=== PATIENT | female | born 1980 | race Caucasian/White ===

== ENCOUNTER 2017-07-01 07:47 | Outpatient (CLI) | payer OTHER ==
[2017-07-01 09:10] LABS: BASOPHILS # (AUTO) 0.2 K/uL (0.00-0.22); BASOPHILS % (AUTO) 2.4 % (0.0-2.0); EOSINOPHILS # (AUTO) 0.3 K/uL (0-0.4); EOSINOPHILS % (AUTO) 3.5 % (0.0-4.0); HEMATOCRIT 44.2 % (36-48); HEMOGLOBIN 14.9 g/dL (12.0-16.0); LYMPHOCYTES # (AUTO) 2.4 K/uL (2.5-16.5); LYMPHOCYTES % (AUTO) 30.4 % (20.5-51.1); MEAN CORPUSCULAR HEMOGLOBIN 31 pg (27-31); MEAN CORPUSCULAR HGB CONC 34 g/dL (33-37); MEAN CORPUSCULAR VOLUME 91 fL (80-94); MONOCYTES # (AUTO) 0.4 K/uL (0.8-1.0); MONOCYTES % (AUTO) 4.5 % (1.7-9.3); NEUTROPHILS # (AUTO) 4.6 K/uL (1.8-7.7); NEUTROPHILS % (AUTO) 59.2 % (42.2-75.2); PLATELET COUNT (AUTO) 274 K/uL (140-450); RED BLOOD CELL COUNT(AUTO) 4.83 MIL/uL (4.20-5.40); RED CELL DISTRIBUTION WIDTH 11.7 % (11.6-13.7); WHITE BLOOD COUNT (AUTO) 7.9 K/uL (4.8-10.8)
[2017-07-01 09:35] LABS: ANION GAP 12.5 (8-16); CARBON DIOXIDE 28.2 mmol/L (21-32); CHOL/HDL RATIO 3.4 (1-4.5); CREATININE 0.9 mg/dL (0.6-1.3); POTASSIUM 3.7 mmol/L (3.5-5.1); THYROID STIMULATING HORMONE 1.23 uIU/mL (0.34-3.74)
[2017-07-01 10:30] LABS: APPEARANCE,URINE HAZY (CLEAR); BILIRUBIN,URINE NEGATIVE (NEGATIVE); BLOOD, URINE TRACE-I (NEGATIVE); COLOR,URINE YELLOW (YELLOW); LEUKOCYTE ESTERASE ,URINE NEGATIVE (NEGATIVE); NITRITE, URINE NEGATIVE (NEGATIVE); UGLUCOSE NEGATIVE (NEGATIVE)
[2017-07-01 11:17] LABS: RBC,URINE 0-5 (RARE) /HPF (0-5); WBC,URINE 0-5 (RARE) /HPF (0-5)
== END 2017-07-01 20:35 | disposition home or self-care (01) ==
LOC: MLB 07:47
PROVIDERS: ATTEND General Practice
DX: I10 Essential (primary) hypertension (principal)
CPT/HCPCS: 36415; 80053; 81001; 84439; 84443; 85025

== ENCOUNTER 2017-08-04 13:42 | Outpatient (CLI) | payer OTHER ==
[2017-08-04 14:38] LABS: ANION GAP 13.7 (8-16); CARBON DIOXIDE 25.9 mmol/L (21-32); CREATININE 0.9 mg/dL (0.6-1.3); POTASSIUM 3.6 mmol/L (3.5-5.1)
== END 2017-08-04 19:31 | disposition home or self-care (01) ==
LOC: MLB 13:42
PROVIDERS: ATTEND Student in an Organized Health Care Education/Training Program
DX: R74.0 Nonspecific elevation of levels of transaminase and lactic acid dehydrogenase [LDH] (principal)
CPT/HCPCS: 36415; 80053

== ENCOUNTER 2020-07-29 08:26 | Outpatient (CLI) | payer OTHER ==
[~2020-07-29 08:26] MED LIST: ESCI10TA PO; LISI-420 PO; METF500T PO
[2020-07-29 08:55] LABS: RED BLOOD CELL COUNT(AUTO) 4.41 MIL/uL (4.20-5.40)
[2020-07-29 08:56] LABS: EOSINOPHILS % (AUTO) 3.3 % (0.0-4.0); HEMATOCRIT 41.4 % (36-48); HEMOGLOBIN 14.3 g/dL (12.0-16.0); LYMPHOCYTES % (AUTO) 35.4 % (20.5-51.1); MEAN CORPUSCULAR HEMOGLOBIN 32 pg (27-31); MEAN CORPUSCULAR HGB CONC 34 g/dL (33-37); MEAN CORPUSCULAR VOLUME 93.9 fL (80-94); MONOCYTES % (AUTO) 4.2 % (1.7-9.3); NEUTROPHILS % (AUTO) 56.1 % (42.2-75.2); PLATELET COUNT (AUTO) 270 K/uL (140-450); RED CELL DISTRIBUTION WIDTH 12.7 % (11.6-13.7)
[2020-07-29 08:57] LABS: BASOPHILS # (AUTO) 0.1 K/uL (0.00-0.22); EOSINOPHILS # (AUTO) 0.3 K/uL (0-0.4); LYMPHOCYTES # (AUTO) 3.2 K/uL (2.5-16.5); MONOCYTES # (AUTO) 0.4 K/uL (0.8-1.0)
[2020-07-29 11:12] LABS: ANION GAP 14.8 (8-16); CARBON DIOXIDE 26.7 mmol/L (21-32); POTASSIUM 3.5 mmol/L (3.5-5.1); TOTAL BILIRUBIN 0.8 mg/dL (0.0-1.0)
[2020-07-29 11:13] LABS: THYROID STIMULATING HORMONE 2.09 uIU/mL (0.34-3.74)
[2020-07-29 12:01] LABS: CHOL/HDL RATIO 3.6 (1-4.5)
[2020-07-30 07:11] LABS: ESTRADIOL SERUM 75.2 pg/mL (.); FOLLICLE STIMULATING HORMONE 5.5 mIU/mL (.); LUTEINIZING HORMONE 4.9 mIU/mL (.)
== END 2020-07-29 21:49 | disposition home or self-care (01) ==
LOC: MLB 08:26
DX: Z01.419 Encounter for gynecological examination (general) (routine) without abnormal findings (principal); N95.1 Menopausal and female climacteric states; Z20.828 Contact with and (suspected) exposure to other viral communicable diseases
CPT/HCPCS: 36415; 80053; 82670; 83001; 83002; 83036; 84144; 84443; 85025

== ENCOUNTER 2022-05-22 08:19 | Outpatient (CLI) | payer OTHER ==
[~2022-05-22 08:19] MED LIST changes: -LISI-420 PO; +LISI20TA30 PO; +METF-346 PO; -METF500T PO
[2022-05-22 08:49] LABS: BASOPHILS # (AUTO) 0.1 K/uL (0.00-0.22); BASOPHILS % (AUTO) 1.1 % (0.0-2.0); EOSINOPHILS # (AUTO) 0.3 K/uL (0-0.4); HEMATOCRIT 41.7 % (36-48); HEMOGLOBIN 14.7 g/dL (12.0-16.0); LYMPHOCYTES # (AUTO) 2.6 K/uL (2.5-16.5); LYMPHOCYTES % (AUTO) 30.1 % (20.5-51.1); MEAN CORPUSCULAR HEMOGLOBIN 32 pg (27-31); MEAN CORPUSCULAR HGB CONC 35 g/dL (33-37); MEAN CORPUSCULAR VOLUME 90.2 fL (80-94); MONOCYTES # (AUTO) 0.3 K/uL (0.8-1.0); MONOCYTES % (AUTO) 3.7 % (1.7-9.3); NEUTROPHILS # (AUTO) 5.3 K/uL (1.8-7.7); NEUTROPHILS % (AUTO) 62.1 % (42.2-75.2); PLATELET COUNT (AUTO) 258 K/uL (140-450); RED BLOOD CELL COUNT(AUTO) 4.63 MIL/uL (4.20-5.40); WHITE BLOOD COUNT (AUTO) 8.6 K/uL (4.8-10.8)
[2022-05-22 09:14] LABS: ANION GAP 12.5 (8-16); CARBON DIOXIDE 26.8 mmol/L (21-32); CREATININE 0.8 mg/dL (0.6-1.3); POTASSIUM 3.3 mmol/L (3.5-5.1)
[2022-05-22 09:25] LABS: ALBUMIN 3.6 g/dL (3.4-5.0); CHOL/HDL RATIO 3.6 (1-4.5)
[2022-05-22 10:47] LABS: APPEARANCE,URINE CLEAR (CLEAR); BILIRUBIN,URINE NEGATIVE (NEGATIVE); BLOOD, URINE NEGATIVE (NEGATIVE); COLOR,URINE YELLOW (YELLOW); LEUKOCYTE ESTERASE ,URINE NEGATIVE (NEGATIVE); NITRITE, URINE NEGATIVE (NEGATIVE); PH,URINE 6.5 (5.0-9.0); UGLUCOSE NEGATIVE (NEGATIVE)
[2022-05-23 09:06] LABS: T4 (THYROXINE) 10.3 ug/dL (4.5-12.0)
[2022-05-24 09:06] LABS: MICROALBUMIN, UR RANDOM 5.2 ug/mL (Not Estab.)
[2022-05-25 12:07] LABS: ANTI-NUCLEAR ANTIBODY,DIRECT Negative (Negative)
== END 2022-05-22 20:18 | disposition home or self-care (01) ==
LOC: MLB 08:19
DX: I10 Essential (primary) hypertension (principal); E66.09 Other obesity due to excess calories; E11.65 Type 2 diabetes mellitus with hyperglycemia; R53.83 Other fatigue; Z00.00 Encounter for general adult medical examination without abnormal findings; E28.2 Polycystic ovarian syndrome; F32.5 Major depressive disorder, single episode, in full remission
CPT/HCPCS: 36415; 80048; 81003; 82040; 82043; 82570; 83036; 84436; 84443; 84479; 85025; 85651; 86038; 86140

== ENCOUNTER 2022-05-25 23:40 | Inpatient (IN) | payer OTHER ==
[~2022-05-25] VITALS: Ht 162.6 cm; Wt 98.4 kg
[2022-05-25 23:46] VITALS: BP 186/108
--- NOTE | 2022-05-25 23:51 | NUR ---
PT TO LOBBY WAITING FOR BED.
--- NOTE | 2022-05-25 23:59 | NUR ---
PT RETURN FROM RADIOLOGY TO ER LOBBY
[2022-05-26 00:16] LABS: BASOPHILS # (AUTO) 0.1 K/uL (0.00-0.22); BASOPHILS % (AUTO) 0.7 % (0.0-2.0); EOSINOPHILS # (AUTO) 0.3 K/uL (0-0.4); EOSINOPHILS % (AUTO) 2.3 % (0.0-4.0); HEMATOCRIT 41.4 % (36-48); HEMOGLOBIN 14.4 g/dL (12.0-16.0); LYMPHOCYTES # (AUTO) 4.4 K/uL (2.5-16.5); LYMPHOCYTES % (AUTO) 35.7 % (20.5-51.1); MEAN CORPUSCULAR HEMOGLOBIN 32 pg (27-31); MEAN CORPUSCULAR HGB CONC 35 g/dL (33-37); MEAN CORPUSCULAR VOLUME 90.4 fL (80-94); MONOCYTES # (AUTO) 0.6 K/uL (0.8-1.0); MONOCYTES % (AUTO) 5.2 % (1.7-9.3); NEUTROPHILS # (AUTO) 6.9 K/uL (1.8-7.7); NEUTROPHILS % (AUTO) 56.1 % (42.2-75.2); PLATELET COUNT (AUTO) 289 K/uL (140-450); RED BLOOD CELL COUNT(AUTO) 4.58 MIL/uL (4.20-5.40); RED CELL DISTRIBUTION WIDTH 12.8 % (11.6-13.7); WHITE BLOOD COUNT (AUTO) 12.4 K/uL (4.8-10.8)
--- NOTE | 2022-05-26 00:28 | NUR ---
PT TO BED 08.
[2022-05-26 01:01] LABS: ALBUMIN 3.8 g/dL (3.4-5.0); ASPARTATE AMINOTRANSFERASE 28 U/L (15-37); CARBON DIOXIDE 28.6 mmol/L (21-32); CHLORIDE 101 mmol/L (98-107); CREATININE 0.8 mg/dL (0.6-1.3); GFR ARICAN-AMERICAN 101 mL/min (>90); GLUCOSE 141 mg/dL (74-106); LIPASE 93 U/L (73-393); POTASSIUM 3.6 mmol/L (3.5-5.1); SODIUM SERUM 139 mmol/L (136-145); TOTAL BILIRUBIN 0.8 mg/dL (0.0-1.0); UREA NITROGEN, BLOOD 17 mg/dL (7-18)
--- NOTE | 2022-05-26 01:05 | NUR ---
Dr. Venegas examining patient.
[2022-05-26] MEDS ORDERED: MORPHINE SULFATE 4 MG/ML SYR IVP ONE (01:15)
[2022-05-26] MEDS ORDERED: ASPIRIN 325 MG TAB PO ONE (01:15)
--- NOTE | 2022-05-26 01:28 | NUR ---
PT TO CT
--- NOTE | 2022-05-26 02:27 | NUR ---
41YR OLD FEMALE BIB SELF C/O CP . PT STATED PAIN IS BURNING PRESSURE SHARP PAIN LEVEL AT 7/10. DENIES SOB . PT IS A&OX4. SKIN WARM DRY AND INTACT. RESP EVEN AND UNLABORED. 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 NKDA PCOS DM HTN
--- NOTE | 2022-05-26 02:35 | NUR ---
DR CARMONA AT BEDSIDE
[2022-05-26] MEDS ORDERED: diazePAM 5 MG TAB PO ONE (02:40)
[2022-05-26] MEDS ORDERED: METF-346 PO (02:58)
[2022-05-26] MEDS ORDERED: LISI-486 PO (02:58)
[2022-05-26] MEDS ORDERED: ESCI10TA PO (02:59)
[2022-05-26] MEDS ORDERED: CETI10SG1 PO (03:01)
--- NOTE | 2022-05-26 03:01 | NUR ---
PT TO BE ADMITTED TO TELE. PT IS AWARE OF ADMISSION . COVID SWAB COLLECTIED AND SENT TO LAB. MED RECONCILE COMPLETED. PENDING ADMISSION ORDERS
[2022-05-26] MEDS ORDERED: NACL 0.9% 1,000 ML IV ONE (03:40)
[2022-05-26] MEDS ORDERED: HYDROcodone/APAP 5/325 MG 1 TAB TAB PO PRN (03:40)
--- NOTE | 2022-05-26 03:56 | NUR ---
Patient will be admitted to care of Dr. Rollins. Admited to TELE. Will go to room 113. Belongings list completed. Report to THU Schreiber.
--- NOTE | 2022-05-26 03:57 | NUR ---
The patient's care was reviewed and supervised by Deborah Bergeron RN.
--- NOTE | 2022-05-26 04:10 | NUR ---
PATIENT WAS BROUGHT TO MST UNIT FROM ER VIA GURNEY. AWAKE ALERT ORIENTED X4, ON ROOM AIR. CC: CHEST PAIN. NO SOB NOTED. DENIES CHEST PAIN AT THIS TIME. IV ACCESS ON THE LAC GAUGE 20. STARTED IVF NS AT 60 MLS/HR. MRSA SCREENING DONE. ALL SAFETY PRECAUTIONS ARE IN PLACE. CALL LIGHT WITHIN REACH. WILL CONTINUE TO MONITOR. Addendum: 05/26/22 at 0537 by Candie Khan RN RN V/S: 148/97, 65, 18, 97.3, 94% RA
--- NOTE | 2022-05-26 07:22 | NUR ---
ENDORSED PATIENT TO DAY SHIFT NURSE FOR CONTINUITY OF CARE.
[2022-05-26 08:00] VITALS: BP 185/104
[2022-05-26] MEDS ORDERED: POTASSIUM CHLORIDE 10 MEQ TABER PO PRN (08:25)
[2022-05-26] MEDS ORDERED: HYDROcodone/APAP 7.5/325 MG 1 TAB PO PRN (08:25)
[2022-05-26] MEDS ORDERED: DOCUSATE SODIUM 100 MG GELCAP PO PRN (08:25)
[2022-05-26] MEDS ORDERED: NITROGLYCERIN 0.4 MG TAB SL PRN (08:25)
[2022-05-26] MEDS ORDERED: guaiFENesin DM 200/20 MG-10 ML 10 ML UDC PO PRN (08:25)
[2022-05-26] MEDS ORDERED: ZOLPIDEM 5 MG TAB PO PRN (08:25)
[2022-05-26] MEDS ORDERED: ACETAMINOPHEN 325 MG TAB PO PRN (08:25)
[2022-05-26] MEDS ORDERED: ONDANSETRON 4 MG/2 ML VIAL IM/IVP PRN (08:25)
[2022-05-26] MEDS ORDERED: PANTOPRAZOLE 40 MG TABEC PO SCH (09:00)
[2022-05-26] MEDS ORDERED: ECOTRIN 81 MG TABEC PO SCH (09:00)
[2022-05-26] MEDS ORDERED: ESCITALOPRAM 20 MG TAB PO SCH (09:00)
[2022-05-26] MEDS ORDERED: lisinopriL 20 MG TAB PO SCH ×2 (09:00→11:23)
[2022-05-26] MEDS ORDERED: metFORMIN 500 MG TAB PO SCH (09:00)
--- NOTE | 2022-05-26 10:14 | NUR ---
PATIENT HAS BEEN SCREENED AND CATEGORIZED LOW NUTRITION RISK. PATIENT WILL BE SEEN WITHIN 7 DAYS OF ADMISSION. 05/26/22-06/02/[address]
[2022-05-26 10:30] VITALS: BP 151/102
--- NOTE | 2022-05-26 10:43 | NUR ---
PATIENT'S MORNING BLOOD PRESSURE WAS 185/104 WITH HEART RATE OF 75. PATIENT DENIES HEADACHE, BLURRY VISION OR CHEST PAIN. MORNING BLOOD PRESSURE MEDICATION GIVEN. BLOOD PRESSURE RECHECKED AND IS NOW 151/102 WITH HEART RATE OF 75. DR. FLOYD CALLED TO BE NOTIFIED. Bautista PENDLETON RN.
[2022-05-26 11:14] LABS: PROTHROMBIN TIME 10.6 secs (10.8-13.4)
--- NOTE | 2022-05-26 11:18 | NUR ---
RECEIVED A CALL BACK FROM DR. WHITAKER AND HE WAS NOTIFIED OF ELEVATED BLOOD PRESSURE. ORDERS GIVEN TO GIVE A ONE TIME ADDITIONAL DOSE OF LISINOPRIL 20MG PO. Bautista PENDLETON RN.
[2022-05-26 11:29] LABS: AMYLASE 53 U/L (25-115); CHOL/HDL RATIO 3.6 (1-4.5); FREE T4 (FREE THYROXINE) 1.13 ng/dL (0.76-1.46); HDL CHOLESTEROL 46 mg/dL (40-60); LDL (CALC) 82 mg/dL (60-100); MAGNESIUM 1.9 mg/dL (1.8-2.4); PHOSPHORUS 3.6 mg/dL (2.5-4.9); THYROID STIMULATING HORMONE 3.87 uIU/mL (0.34-3.74); TRIGLYCERIDES 181 mg/dL (30-150)
--- NOTE | 2022-05-26 11:30 | NUR ---
DC PLANNING SW MET WITH PT AT BEDSIDE TO COMPLETE ASSESSMENT. PATIENT REPORTS RESIDING IN A SINGLE STORY HOME WITH HER FAMILY, AT THE ADDRESS LISTED ON FILE. PATIENT IDENTIFIED HER , BRYANT HERNANDEZ, AND DAUGHTER, JUAQUIN HERNANDEZ, EMERGENCY CONTACTS AND MDM. PATIENT REPORTS MEETING WITH HER PCP, DR. DOUGHERTY, NEEDED, LAST VISIT; 6 MONTHS AGO. PATIENT REPORTS MEDICATION COMPLIANCE AND DENIES BARRIERS IN ACCESSING MEDICATION. PATIENT REPORTS PICKING UP MEDICATION AT [facility] IN [place], WHEN NEEDED. PATIENT REPORTS BEING INDEPENDENT IN ALL ACTIVITIES AND DENIES USE OF DME. PATIENT DENIES MH/SA HX. PATIENT REPORTS POSSIBLE NEW DX OF DIABETES. SW TO PROVIDE PATIENT WITH DIABETES RESOURCES. PATIENT REPORTS DC PLAN IS TO RETURN HOME WITH FAMILY PROVIDING TRANSPORTATION. SW INQUIRED ON ADDITIONAL RESOURCES NEEDED, PT DECLINED. Addendum: 05/26/22 at 1552 by Veronica Suarez PROVIDED PATIENT WITH DIABETES RESOURCES AND ADHCD. PATIENT ACCEPTED RESOURCES PROVIDED.
[2022-05-26 12:00] VITALS: BP 134/88
--- NOTE | 2022-05-26 12:05 | NUR ---
BLOOD PRESSURE DECREASED TO 134/88 WITH HEART RATE OF 65. Bautista PENDLETON RN.
[2022-05-26 16:00] VITALS: BP 132/85
[2022-05-26] MEDS ORDERED: ATORVASTATIN 20 MG TAB PO SCH (17:00)
--- NOTE | 2022-05-26 18:34 | NUR ---
DISCHARGE INSTRUCTIONS AND PLAN OF CARE DISCUSSED WITH PATIENT. PATIENT VERBALIZED UNDERSTANDING. IV DISCONTINUED. PATIENT DISCHARGED HOME WITH FAMILY. Bautista PENDLETON RN.
[2022-05-27 07:07] LABS: T4 (THYROXINE) 10.2 ug/dL (4.5-12.0)
[2022-05-27] MEDS ORDERED: lisinopriL 20 MG TAB PO SCH (09:00)
== END 2022-05-26 18:45 | disposition home or self-care (01) | DRG 305 ==
LOC: MED 23:40 → MTU 05-26 03:11 → MED 05-26 03:22 → MTU 05-26 03:51
PROVIDERS: ADMIT Family Medicine; ATTEND Family Medicine
DX: I16.0 Hypertensive urgency (principal); E11.9 Type 2 diabetes mellitus without complications; I10 Essential (primary) hypertension; D72.829 Elevated white blood cell count, unspecified; E28.2 Polycystic ovarian syndrome; Z20.822 Contact with and (suspected) exposure to COVID-19; Z79.84 Long term (current) use of oral hypoglycemic drugs; Z79.899 Other long term (current) drug therapy
CPT/HCPCS: 36415; 71045; 71275; 80053; 82150; 83036; 83690; 83735; 83880; 84100; 84436; 84439; 84443; 84479; 84484; 85025; 85610; 85730; 87081; 93005; 96374; 99285; J2270; Q9967

== ENCOUNTER 2022-05-28 07:59 | Outpatient (CLI) | payer OTHER ==
[~2022-05-28 07:59] MED LIST changes: +CETI10SG1 PO; +LISI-486 PO
[2022-05-28 09:09] LABS: ANION GAP 12.8 (8-16); CREATININE 0.7 mg/dL (0.6-1.3); POTASSIUM 3.8 mmol/L (3.5-5.1)
[2022-05-28 09:14] LABS: CHOL/HDL RATIO 2.8 (1-4.5)
== END 2022-05-28 21:04 | disposition home or self-care (01) ==
LOC: MLB 07:59
DX: I10 Essential (primary) hypertension (principal); E11.65 Type 2 diabetes mellitus with hyperglycemia; E66.09 Other obesity due to excess calories
CPT/HCPCS: 36415; 80048; 83036

== ENCOUNTER 2022-06-09 08:30 | Outpatient (CLI) | payer OTHER ==
[2022-06-09 11:23] LABS: URIC ACID 5.9 mg/dL (2.6-7.2)
[2022-06-09 12:02] LABS: APPEARANCE,URINE HAZY (CLEAR); BILIRUBIN,URINE NEGATIVE (NEGATIVE); BLOOD, URINE NEGATIVE (NEGATIVE); COLOR,URINE YELLOW (YELLOW); LEUKOCYTE ESTERASE ,URINE TRACE (NEGATIVE); NITRITE, URINE NEGATIVE (NEGATIVE); UGLUCOSE NEGATIVE (NEGATIVE)
[2022-06-09 12:55] LABS: RBC,URINE 0-5 /HPF (0-5)
[2022-06-10 09:07] LABS: ANTI-NUCLEAR ANTIBODY,DIRECT Negative (Negative)
== END 2022-06-09 20:50 | disposition home or self-care (01) ==
LOC: MLB 08:30
PROVIDERS: ATTEND Internal Medicine
DX: R76.0 Raised antibody titer (principal); M25.50 Pain in unspecified joint
CPT/HCPCS: 36415; 80074; 81001; 82306; 82550; 84550; 85613; 86038; 86140; 86147; 86160; 86430; 87086

== ENCOUNTER 2022-09-03 09:07 | Outpatient (CLI) | payer OTHER ==
[2022-09-03 09:40] LABS: BASOPHILS # (AUTO) 0.1 K/uL (0.00-0.22); BASOPHILS % (AUTO) 0.6 % (0.0-2.0); EOSINOPHILS # (AUTO) 0.2 K/uL (0-0.4); EOSINOPHILS % (AUTO) 2.6 % (0.0-4.0); HEMATOCRIT 40.2 % (36-48); HEMOGLOBIN 13.8 g/dL (12.0-16.0); LYMPHOCYTES # (AUTO) 2.7 K/uL (2.5-16.5); LYMPHOCYTES % (AUTO) 29.1 % (20.5-51.1); MEAN CORPUSCULAR HEMOGLOBIN 32 pg (27-31); MEAN CORPUSCULAR HGB CONC 34 g/dL (33-37); MEAN CORPUSCULAR VOLUME 91.7 fL (80-94); MONOCYTES # (AUTO) 0.4 K/uL (0.8-1.0); MONOCYTES % (AUTO) 4.3 % (1.7-9.3); NEUTROPHILS # (AUTO) 5.9 K/uL (1.8-7.7); NEUTROPHILS % (AUTO) 63.4 % (42.2-75.2); PLATELET COUNT (AUTO) 280 K/uL (140-450); RED BLOOD CELL COUNT(AUTO) 4.39 MIL/uL (4.20-5.40); RED CELL DISTRIBUTION WIDTH 12.9 % (11.6-13.7); WHITE BLOOD COUNT (AUTO) 9.3 K/uL (4.8-10.8)
[2022-09-03 09:41] LABS: ANION GAP 9.5 (8-16); CARBON DIOXIDE 31.7 mmol/L (21-32); CREATININE 0.8 mg/dL (0.6-1.3); POTASSIUM 4.2 mmol/L (3.5-5.1)
[2022-09-03 09:56] LABS: CHOL/HDL RATIO 2.8 (1-4.5); THYROID STIMULATING HORMONE 1.28 uIU/mL (0.34-3.74)
== END 2022-09-03 18:02 | disposition home or self-care (01) ==
LOC: MLB 09:07
DX: E11.65 Type 2 diabetes mellitus with hyperglycemia (principal); I10 Essential (primary) hypertension; R79.82 Elevated C-reactive protein (CRP); Z13.29 Encounter for screening for other suspected endocrine disorder
CPT/HCPCS: 36415; 80048; 83036; 84443; 85025

== ENCOUNTER 2023-09-28 08:20 | Outpatient (CLI) | payer OTHER ==
[2023-09-28 08:44] LABS: BASOPHILS # (AUTO) 0.1 K/uL (0.00-0.22); BASOPHILS % (AUTO) 0.7 % (0.0-2.0); EOSINOPHILS # (AUTO) 0.3 K/uL (0-0.4); EOSINOPHILS % (AUTO) 3.5 % (0.0-4.0); HEMATOCRIT 38.8 % (36-48); HEMOGLOBIN 13.6 g/dL (12.0-16.0); LYMPHOCYTES # (AUTO) 2.8 K/uL (2.5-16.5); LYMPHOCYTES % (AUTO) 35.8 % (20.5-51.1); MEAN CORPUSCULAR HEMOGLOBIN 31 pg (27-31); MEAN CORPUSCULAR HGB CONC 35 g/dL (33-37); MEAN CORPUSCULAR VOLUME 89.1 fL (80-94); MONOCYTES # (AUTO) 0.4 K/uL (0.8-1.0); MONOCYTES % (AUTO) 4.7 % (1.7-9.3); NEUTROPHILS # (AUTO) 4.3 K/uL (1.8-7.7); NEUTROPHILS % (AUTO) 55.3 % (42.2-75.2); PLATELET COUNT (AUTO) 260 K/uL (140-450); RED BLOOD CELL COUNT(AUTO) 4.36 MIL/uL (4.20-5.40); RED CELL DISTRIBUTION WIDTH 12.9 % (11.6-13.7); WHITE BLOOD COUNT (AUTO) 7.8 K/uL (4.8-10.8)
[2023-09-28 09:05] LABS: ALBUMIN 3.4 g/dL (3.4-5.0); ANION GAP 13.3 (8-16); CALCIUM 8.5 mg/dL (8.5-10.1); CARBON DIOXIDE 27.1 mmol/L (21-32); CHOL/HDL RATIO 2.6 (1-4.5); CREATININE 0.8 mg/dL (0.6-1.3); POTASSIUM 3.4 mmol/L (3.5-5.1); THYROID STIMULATING HORMONE 1.73 uIU/mL (0.34-3.74); TOTAL BILIRUBIN 0.8 mg/dL (0.0-1.0); TOTAL PROTEIN, SERUM 7.9 g/dL (6.4-8.2)
== END 2023-09-28 20:19 | disposition home or self-care (01) ==
LOC: MLB 08:20
PROVIDERS: ATTEND Specialist
DX: Z01.419 Encounter for gynecological examination (general) (routine) without abnormal findings (principal); Z11.51 Encounter for screening for human papillomavirus (HPV)
CPT/HCPCS: 36415; 80053; 84443; 85025

== ENCOUNTER 2023-11-17 07:52 | Outpatient (CLI) | payer OTHER ==
[2023-11-18 14:51] LABS: HEMOGLOBIN A1C 6.3 % (4.8-5.6)
[2023-11-19 15:07] LABS: MICROALBUMIN, UR RANDOM 31.1 ug/mL (Not Estab.)
== END 2023-11-17 22:47 | disposition home or self-care (01) ==
LOC: MLB 07:52
DX: E11.65 Type 2 diabetes mellitus with hyperglycemia (principal)
CPT/HCPCS: 36415; 82043; 83036